=== PATIENT | male | born 1980 | race Native Hawaiian/Other Pacific Islander ===

== ENCOUNTER 2020-02-21 13:17 | Emergency (ER) | payer OTHER ==
--- NOTE | 2020-02-21 13:54 | ED Physician Documentation ---
History of Present Illness - Stated complaint Stated Complaint: SWELLING R FOOT - Chief complaint Chief Complaint: Ext Problem - Additonal information Additional information: 39-year-old male presents to the emergency department for evaluation of intermittent right foot pain for greater than 1 year. He reports that intermittently he will develop foot swelling. Sometimes it gets better on its own but sometimes it does not. He has been seen by [facility] recently and had negative x-rays. [facility] has not yet authorized him to be seen by a foot doctor. He feels that the pain is too severe and he cannot bear weight on the leg therefore he presents to the emergency department today. He denies fevers or dyspnea. No chest pain. No history of DVT or cancer. Does not take hormones. No recent travel or immobilization Review of Systems Constitutional: reports: Reviewed and negative Eyes: reports: Reviewed and negative Nose: reports: Reviewed and negative Throat: reports: Reviewed and negative Cardiac: reports: Reviewed and negative Respiratory: reports: Reviewed and negative GI: reports: Reviewed and negative : reports: Dysuria Skin: reports: Reviewed and negative Musculoskeletal: reports: Extremity pain (right foot) Neurologic: reports: Reviewed and negative Psychiatric: reports: Reviewed and negative PD PAST MEDICAL HISTORY - Past Medical History Past Medical History: No Cardiovascular: None Respiratory: None Neuro: None Endocrine/Autoimmune: None GI: None : None Psych: None Musculoskeletal: None Derm: None - Past Surgical History Past Surgical History: No - Allergies Allergies/Adverse Reactions: Allergies Allergy/AdvReac Type Severity Reaction Status Date / Time No Known Drug Allergies Allergy Verified 02/21/20 13:26 - Social History Does the pt smoke?: No Smoking Status: Never smoker Does the pt drink ETOH?: Yes Does the pt have substance abuse?: No - Immunizations Immunizations are current?: Yes - POLST Patient has POLST: No PD ED PE EXPANDED - General General: Alert, No acute distress, Well developed/nourished - Cardiac Cardiac: Regular Rate, Regular Rhythm, Radial strong equal, Pedal strong equal, Cap refill < 2 sec - Respiratory Respiratory: Clear to ausultation manas. No: Distress, Labored - Extremities Extremities: Pedal edema R (Generalized tenderness to the right foot with mild nonpitting edema to the ankle. No erythema. No deformity. Patient has significant difficulty bearing weight.) - Neuro Neuro: Alert and Oriented X 3, CNII-XII intact, CN deficit Results - Vitals Vitals: Vital Signs - 24 hr 02/21/20 13:21 Temperature 36.7 C Heart Rate 84 Respiratory 15 Rate Blood Pressure 143/90 H O2 Saturation 100 Oxygen O2 Source Room air - Labs Labs: Laboratory Tests 02/21/20 14:00 WBC 10.1 RBC 4.90 Hgb 14.9 Hct 44.6 MCV 91.0 MCH 30.4 MCHC 33.4 RDW 12.5 Plt Count 334 MPV 9.5 Neut # (Auto) 6.9 H Lymph # (Auto) 2.3 [place] # (Auto) 0.7 Eos # (Auto) 0.2 Baso # (Auto) 0.0 Absolute Nucleated RBC 0.00 Nucleated RBC % 0.0 PD MEDICAL DECISION MAKING - ED course Complexity details: reviewed results, re-evaluated patient, considered differential, d/w patient ED course: 39-year-old male presents the emergency department with worsening right foot pain limiting his ability to bear weight. This has been an intermittent problem for much of the last year. Patient reports to me that [facility] completed x- rays that were unrevealing. However our radiology department has concerned that he may have a sesamoid bone fracture. Given this possible new finding, he would benefit from referral at a director safety and/or an MRI of the foot. Patient was made nonweightbearing and giving a walking boot and crutches. He has an appointment with [facility] tomorrow and will continue follow-up there. Deferred ultrasound DVT of this right leg as this has been an intermittent problem for much of the last year and by Wells criteria the risk for DVT is low. Emergent return precautions discussed Departure - Departure Disposition: 01 Home, Self Care Clinical Impression: Right foot pain Condition: Stable Record reviewed to determine appropriate education?: Yes Comments: Eugene I hope that your foot is feeling better soon. The x-ray of your foot today suggest that you might have a sesamoid bone fracture. This is likely a chronic finding. However in the long-term evaluation with a director safety and/or an MRI of the foot may be necessary to help diagnose your pain. Please continue to wear the walking boot when out of bed and use crutches to help ambulate. Do not miss follow-up with [facility] tomorrow.
--- NOTE | 2020-02-21 14:12 | XRAY Report ---
PROCEDURE: Foot 3 View RT INDICATIONS: pain for > 1 year TECHNIQUE: 3 views of the foot were acquired. COMPARISON: Not available. FINDINGS: Bones: Bipartite lateral sesamoid which are displaced. No suspicious bony lesions. Soft tissues: No tibiotalar joint effusion. Achilles tendon appears normal. IMPRESSION: 1. Bipartite lateral sesamoid which are displaced. Cannot rule out sesamoid fracture. If there is foc al pain and tenderness, further evaluation with MRI is suggested. Reviewed by: Sydney Mcclure MD on 02/21/2020 2:11 PM PST Approved by: Sydney Mcclure MD on 02/21/2020 2:11 PM PST Station ID: [id number]
[2020-02-21 14:14] LABS: BASOPHILS % (AUTO) 0.4 %; EOSINOPHILS # (AUTO) 0.2 10^3/uL (0.0-0.7); EOSINOPHILS % (AUTO) 1.6 %; HGB - HEMOGLOBIN 14.9 g/dL (14.0-18.0); LYMPHOCYTES # (AUTO) 2.3 10^3/uL (1.5-3.5); LYMPHOCYTES % (AUTO) 22.3 %; MEAN CORPUSCULAR HEMOGLOBIN 30.4 pg (27.0-31.0); MEAN CORPUSCULAR HGB CONC 33.4 g/dL (32.0-36.0); MEAN PLATELET VOLUME 9.5 fL (7.4-11.4); MONOCYTES # (AUTO) 0.7 10^3/uL (0.0-1.0); MONOCYTES % (AUTO) 6.6 %; NEUTROPHILS # (AUTO) 6.9 10^3/uL (1.5-6.6); NEUTROPHILS % (AUTO) 68.6 %; PLT - PLATELET COUNT 334 10^3/uL (130-450); RED CELL DISTRIBUTION WIDTH 12.5 % (12.0-15.0); WHITE BLOOD COUNT 10.1 x10^3/uL (4.8-10.8)
[2020-02-21 14:20] LABS: ALBUMIN 4.2 g/dL (3.2-5.5); ALBUMIN/GLOBULIN RATIO 1.3 (1.0-2.2); BILIRUBIN,TOTAL 0.9 mg/dL (0.2-1.0); CALCIUM 9.4 mg/dL (8.5-10.3); TOTAL PROTEIN 7.4 g/dL (6.7-8.2)
[2020-02-21 14:39] VITALS: BP 148/96
== END 2020-02-21 14:45 | disposition home or self-care (01) ==
LOC: ED 13:17
DX: M79.671 Pain in right foot (principal)
CPT/HCPCS: 36415; 80053; 83690; 85025; 99284

== ENCOUNTER 2020-02-27 14:50 | Outpatient (CLI) | payer OTHER ==
--- NOTE | 2020-02-27 19:06 | MRI Report ---
PROCEDURE: Foot RT W/O INDICATIONS: PAIN IN RT FOOT TECHNIQUE: Noncontrast coronal and sagittal T1 spin echo and STIR; axial T1 spin echo and T2 fast spin echo with fat saturation through the right foot. COMPARISON: Right foot radiograph dated 02/21/2020. FINDINGS: Image quality: Excellent. Bones: Right foot alignment is anatomic. Recently joint osteoarthritic changes are seen with joint sp balaji narrowing or subchondral cyst formation. No marrow edema. No fracture or dislocation. No suspicio us intraosseous lesion. Soft tissues: There is dorsal midfoot and forefoot soft tissue swelling and edema particularly over lateral aspect. No discrete drainable fluid collection is seen. The scanned muscles demonstrate le l overall bulk and internal signal. Subcutaneous tissues appear normal as well. Lisfranc ligament an d joint is intact. IMPRESSION: 1. Dorsal right midfoot soft tissue swelling and edema. No or fluid collection. Tendinosis and ligame nts are intact. 2. No marrow edema. No fracture or dislocation. First MTP joint osteoarthritis. Reviewed by: Ferdinand Kwok MD on 02/27/2020 6:05 PM [facility] Approved by: Ferdinand Kwok MD on 02/27/2020 6:05 PM [facility] Station ID: [id number]
== END 2020-02-27 14:51 | disposition home or self-care (01) ==
LOC: DI 14:50
PROVIDERS: ATTEND Student in an Organized Health Care Education/Training Program
DX: M79.671 Pain in right foot (principal); R60.0 Localized edema

== ENCOUNTER 2020-03-18 08:45 | Outpatient (CLI) | payer OTHER ==
--- NOTE | 2020-03-18 09:43 | SLEEP CARE CONSULTATION ---
Information from patient questionnaire entered by Dedra Portillo. I have reviewed and concur with the information entered by Dedra Portillo. This document represents the service I personally performed and the decisions made by me, Anabell Barnes ARNP. History of Present Illness Service Date and Time: 03/18/2020 0845 Reason for Visit: New patient Chief Complaint: reports: Insomnia, Unrefreshed sleep, Snoring, Excessive daytime sleepiness, Observed pauses in breathing, Fatigue, Frequent awakenings at night Date of Onset: over 1 year Usual bedtime: 9:30 pm Time it takes to fall asleep: 1-2 hours Snores at night: Yes Observed to quit breathing while asleep: Yes Sleeps alone due to snoring: No Number of times waking at night: 3-4 Reasons for waking at night: reports: Choking, Snoring, Gasping for air, Pain, Bathroom Toss, Turn, or Twitch while sleeping: Yes Recalls having dreams: Yes (sometimes) Usually gets out of bed at: 5:30 am Feels refreshed in the morning: No Morning headache: Yes (most mornings for 1-2 hours w/out meds) Sleepy or fatigued during the day: Yes Ever fallen asleep while driving: No Takes day naps: Yes (seldomly, weekends if able for about 20-30 mins) Dreams during day naps: No Prior sleep studies: No Additional HPI information: I had the pleasure of seeing GEOVANY MARTIN today regarding the possibility of him having a sleep disorder. His current complaints are insomnia, snoring, observed pauses in breathing, frequent night awakenings, unrefreshed sleep, excessive daytime sleepiness and fatigue. 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 He has been told by his that he snores loudly, he does wake himself up snoring and with dry mouth. She has also noted that he has a pause in breathing. He has felt his heart rate increase and has to take a deep breath to relax. His father had bad snoring issues but not diagnosed with WILLA. - Parasomnia Symptoms Ever been unable to move upon waking from sleep: Yes Walks in sleep: No Talks in sleep: Yes Ever acted out dreams in sleep: Yes Ever felt weak in the knees when startled or emotional: No Bothered by creepy, crawly, restless sensations in legs: Yes (mostly at night) Problems with memory or concentration: Yes (both) Subjective Initial [place] Sleepiness Scale score: 4 (in 2019) Past Medical History Past Medical History: reports: Arthritis, Gout, Anxiety. denies: Hypertension (runs in family; not treated but has had some higher pressures), Diabetes, Arrythmia, Anemia, Impotence, Depression, Mood disorder, GERD Social History The patient's occupation is a Active . Patient is and lives in [place]. Have you smoked in the past 12 months: No Alcohol use: Yes Alcohol amount and frequency: 1-2 drinks a year Caffeine use: Yes Caffeine amount and frequency: 1 a month Family History Family history of sleep disordered breathing: Yes (father) Family Hx Sleep Apnea: Father: Snoring Allergies and Home Medications Drug allergies reviewed: Yes (NKDA) Home medication list reviewed: Yes Allergy and home medication list: Multivitamin Ibuprofen, prn Review of Systems Weight gain over past 5 years: 15-20 Weight loss over past 5 years: 15-20 Cardiovascular: reports: high blood pressure (occasional when sleeping), leg or foot swelling. denies: palpitations, irregular heart rate or pulse Respiratory: reports: wheeze Gastrointestinal: denies: heartburn Neurological: reports: headaches. denies: seizure, head trauma Psychiatric: reports: anxiety Ear/Nose/Throat: reports: nasal congestion, dry mouth/throat (usually in morning and when getting up during the night), wisdom teeth removed. denies: injury to nose, tonsillectomy Endocrine: reports: excessive thirst, increased appetite Musculoskeletal: reports: joint swelling, muscle pain or cramping, mobility problems Immunologic: reports: itching. denies: allergies to food or environment Physical Exam Blood Pressure: 128/92 Cuff size: long Heart Rate: 91 O2 Saturation: 97 Height: 5 ft 8 in Weight: 224 lb Body Mass Index: 34.0 BMI Classification: Obese Neck circumference: 15.5 (inches) Nostrils: patent to airflow Turbinates: swollen Septum: midline Mouth and throat: narrow oropharynx Soft palate: long Uvula visualization: 100% Mallampati Class I Tongue: enlarged in size with teeth bird on lateral edges Tonsils: 1+ Neck: normal w/o lymphadenopathy or thyromegaly Heart: irregular rhythm Lungs: clear bilaterally Impression and Plan 1. Suspected Obstructive Sleep Apnea-Hypopnea Syndrome, as suggested by a history of loud and irregular snoring, observed cessation of breath while asleep, gasping or choking in sleep, morning headache, frequent awakening during the night, unrefreshed sleep, cognitive impairment, and excessive daytime sleepiness. I reviewed with patient that a narrow oropharynx and obesity are common predisposing factors for obstructive sleep apnea-hypopnea syndrome. I recommend proceeding to polysomnography to confirm the diagnosis and to assess severity. If the patient has significant sleep disordered breathing, a manual CPAP titration study will also be performed to find the optimal treatment pressure. I informed the patient of what the sleep studies involve and after some discussion, obtained agreement to proceed. The pathophysiology of obstructive sleep apnea-hypopnea syndrome was discussed with the patient and [facility] risks of cardiovascular and cerebrovascular disease if not treated. [facility] brochure for obstructive sleep apnea-hypopnea syndrome given and reviewed. Risks of drowsy driving discussed in detail and patient advised to avoid long distance driving and to pull worker at the first sign of drowsiness. Patient agreed to plan. * Schedule polysomnography +- manual CPAP titration study and return in 1-2 we eks after the study to discuss result and initiate therapy. * Avoid long distance driving or driving when feeling sleepy. * Avoid alcohol, sedative and muscle relaxant around bedtime. * Attempt to lose weight. * Review instructions provided by trained office staff on how to prepare for the sleep study. * Return for follow-up after sleep study completed. Counseling Topics: Weight loss health impact Visit Type: In Office Time Spent with Patient (minutes): 30 Provider Statement: I spent 100% of the Face to Face Visit with the patient with greater than 50% spent counseling the patient and coordination of care.
[2020-03-18 09:44] VITALS: BP 128/92
== END 2020-03-18 08:46 | disposition home or self-care (01) ==
LOC: SC 08:45
PROVIDERS: ATTEND Nurse Practitioner Family
DX: R06.83 Snoring (principal); R06.81 Apnea, not elsewhere classified; R51.9 Headache, unspecified; G47.8 Other sleep disorders; R41.89 Other symptoms and signs involving cognitive functions and awareness; G47.10 Hypersomnia, unspecified; E66.9 Obesity, unspecified; Z68.34 Body mass index [BMI] 34.0-34.9, adult
CPT/HCPCS: 99203; 99212

== ENCOUNTER 2020-04-02 14:03 | Outpatient (CLI) | payer OTHER | END 2020-04-02 14:04 | disposition home or self-care (01) | LOC: SC 14:03 | PROVIDERS: ATTEND Nurse Practitioner Family | DX: G47.33 Obstructive sleep apnea (adult) (pediatric) (principal); E66.9 Obesity, unspecified; Z68.34 Body mass index [BMI] 34.0-34.9, adult | CPT/HCPCS: 95806 ==

== ENCOUNTER 2020-04-18 14:12 | Outpatient (CLI) | payer OTHER ==
--- NOTE | 2020-04-18 13:50 | SLEEP CARE CONSULTATION ---
Information from patient questionnaire entered by Haley Leigh. I have reviewed and concur with the information entered by Haley Leigh. This document represents the service I personally performed and the decisions made by me, Anabell Barnes ARNP. History of Present Illness Service Date and Time: 04/18/2020 1340 Initial [place] Sleepiness Scale score: 4 (in 2019) Additional HPI information: GEOVANY MARTIN returns via Telehealth visit for follow up and results of the recently performed home sleep study. I explained the pathophysiology behind obstructive sleep apnea. We then spent quite a bit of time discussing different treatment options. For mild obstr uctive sleep apnea, surgery and oral appliance are alternatives to nasal CPAP therapy but in moderate or severe cases, nasal CPAP is the most effective and reliable treatment. Because apnea is primarily in supine position, then positional management therapy could be effective. Methods discussed such as positioning with pillows, using a T-shirt with tennis balls in the back, and shown commercial products that have a pillow format on back to prevent supine sleep. I reviewed the impact of weight changes on sleep apnea and strongly recommended losing weight. After some discussion, the patient opted to go with the nasal CPAP therapy. Nasal autoCPAP set at 4-15 cmH20 will be ordered with rationale explained. A manual titration study will be ordered if unable to find optimal pressure with office adjustments. I explained how CPAP machine works and what to expect when using the machine. Using CPAP every night in order to get used to it was emphasized. Patient advised to put CPAP mask on before getting into bed so as not to fall asleep without CPAP. To assist acclimation to CPAP use, it could also be used for a short time during day while reading or watching TV. The patient was instructed to call the CPAP supplier to discuss any mechanical problem that may occur. If the mask given is uncomfortable or is difficult to keep on through the night even with adjustment, contact the CPAP supplier as many will replace with another mask style if notified before 30 days. If snoring or perceives is not getting enough air or too much air from the machine, notify this office. Patient was cautioned about risks of drowsy driving until sleepiness symptoms resolve. Sleep Study - Results Type of Sleep Study: Home sleep study Prior sleep studies: No Polysomnography/Home Sleep Study results: Physician Impression: The quality of the study is good. The length of the study is adequate (> 240 minutes). Please also see the tabulated and graphic data. 1. Obstructive Sleep Apnea-Hypopnea (ICD-10 G47.33), mild, with an AHI of 8.9/hr and angeli SaO2 of 82%. During the study, the patient had 17 apneas (17 obstructive, 0 central, 0 mixed) and 50 hypopneas. The longest episode lasted 57.0 seconds. The respiratory events occurred almost exclusively during supine sleep (supine AHI was 10.9 and non-supine, 0.66). 2. Hypoxemia (ICD-10 R09.02), mild, with the lowest oxygen saturation of 82 % and 1.4 minutes with SaO2 under 90%. Baseline oxygen saturation was normal (Average oxygen saturation was 95%). Allergies and Home Medications Drug allergies reviewed: Yes (NKDA) Home medication list reviewed: Yes (no changes) Review of Systems Review of systems same as previous: Yes (no changes) Physical Exam Vital signs obtained and entered by: Telehealth visit to reduce exposure during covid pandemic Height: 5 ft 8 in Impression and Plan 1. Obstructive Sleep Apnea-Hypopnea Syndrome, mild, with lowest oxygen saturation of 82%. Obviously this is the cause of the patients symptoms of unrefreshed sleep, and excessive daytime sleepiness. Positive pressure therapy could benefit anxiety. As mentioned above, the patient will be started on nasal autoCPAP therapy with pressure set at 4-15 cmH2O. A manual titration study will be completed if unable to find optimal treatment pressure with office adjustments. Compliance guidelines also reviewed. A copy of compliance guidelines will be given for reference at check out. Because the apnea is more severe supine, I instructed to avoid sleeping supine using pillow positioning until able to start CPAP use. * Nasal auto CPAP therapy, pressure at 4-15 cm H2O. * Attempt to lose weight. * Avoid alcohol consumption near bedtime. * Avoid supine sleep until using CPAP. * The patient is again cautioned about driving until sleepiness completely resolves. * Return one month after CPAP obtained. I will assess response to therapy and compliance at that time. Counseling Topics: Weight loss health impact Visit Type: Telehealth Video Video Type: VSee Patient Location: Home Location of Provider: Office Patient agrees and consents to this telehealth visit type: Yes Patient agrees to have their insurance billed: Yes Provider Statement: I spent 100% of the Telehealth Video Call with the patient with greater than 50% spent counseling the patient and coordination of care.
== END 2020-04-18 14:13 | disposition home or self-care (01) ==
LOC: SC 14:12
PROVIDERS: ATTEND Nurse Practitioner Family
DX: G47.33 Obstructive sleep apnea (adult) (pediatric) (principal)

== ENCOUNTER 2020-06-20 12:54 | Outpatient (CLI) | payer OTHER ==
--- NOTE | 2020-06-20 13:25 | SLEEP CARE CONSULTATION ---
Information from patient questionnaire entered by Dedra Portillo. I have reviewed and concur with the information entered by Dedra Portillo. This document represents the service I personally performed and the decisions made by , Anabell Barnes ARNP. History of Present Illness Service Date and Time: 06/20/2020 1254 Previous diagnosis: Mild, Obstructive Sleep Apnea-Hypopnea Syndrome AHI: 8.9 (in 2020) Reason for follow up: first compliance Equipment type: CPAP Equipment obtained from: [employer] (getting supplies as needed) Mask style: Full face Mask brand: Resmed (AirFit 20) Backup mask available: Yes (other mask) Last cushion change: 6 days ago Prior sleep studies: Yes Year and Where: 2020 - [facility] Type of Sleep Study: Home sleep study HPI additional information: GEOVANY MARTIN was diagnosed to have mild, AHI 8.9, obstructive sleep apnea- hypopnea syndrome and returned today for CPAP therapy first compliance follow- up. CPAP Compliance Data - Data Reviewed with Patient Average duration of nightly device use: 7 hr 42 min Compliance rate %: 90 Current pressure setting (cmH2O): 4-15 (median 5.7, avg 9.0, max 10.4) Humidity settin Average residual AHI: 1.6 Subjective Missed days of use due to: reports: other (work schedule) Patient concerns: reports: mask leak noise, condensation in mask/hose, other (movement). denies: aerophagia, mask discomfort, air blowing in eyes, nasal congestion, dry mouth, nose, throat, epistaxis Observed to snore while using device: No Current pressure setting perceived as: comfortable On therapy, patient: reports: sleeping better, awakening more refreshed, being more awake and alert during the day, more rested overall. denies: drowsiness while driving Initial [place] Sleepiness Scale score: 4 (in 2019) Current [place] Sleepiness Scale score: 8 (on nights; shift work) Allergies and Home Medications Home medication list reviewed: Yes (no changes) Review of Systems Review of systems same as previous: Yes (no changes) Physical Exam Heart Rate: 95 O2 Saturation: 97 Height: 5 ft 8 in Weight: 219 lb Body Mass Index: 33.3 BMI Classification: Obese Impression and Plan 1. Obstructive Sleep Apnea-Hypopnea Syndrome, mild, with good treatment compliance and good apnea control. On CPAP therapy, the patient has better sleep quality and is more rested overall. He has had some mask movement and air leaking when laying on his side. He feels the medium full face mask fits him best. Mask leaks can be reduced by washing mask daily and changing mask cushions more frequently to improve mask seal and comfort. Additionally, mask leaks predominately from when patient sleeps on their side can be reduced by using a CPAP pillow. A CPAP pillow sample was shown. This and other styes can be purchased online. I will adjust his APAP pressure to reflect pressures he is using to 6-10 cmH2O and follow up in 1-2 months. Patient's apnea severity and rationale for treatment to reduce apnea, improve sleep quality and reduce cardiovascular and cerebrovascular events was reviewed. I also reviewed the benefit of consistent device use of CPAP for anxiety. * Change auto CPAP pressure to 6-10 cmH2O * Notify me if snoring with mask or feeling that the pressure is too much or too little * Attempt to lose weight * Call this office if any problems using CPAP * Return for follow up in 1-2 months , or sooner if concerns arise Counseling Topics: Spare mask, Weight loss health impact, Activity level Visit Type: In Office Time Spent with Patient (minutes): 22 Provider Statement: I spent 100% of the Face to Face Visit with the patient with greater than 50% spent counseling the patient and coordination of care.
--- OUTSIDE RECORDS SUMMARY | 2020-06-25 01:58 | EXTERNAL MEDICAL SUMMARY RPT | Continuity of Care Document ---
:1980 Demographics Phone Unavailable Preferred Language Polish Marital Status Unknown Christianity Affiliation Unknown Race Unknown Ethnic Group Unknown Author Organization [place] Address [address] [place] [address] Phone Social History date description facility [phone]
== END 2020-06-20 12:55 | disposition home or self-care (01) ==
LOC: SC 12:54
PROVIDERS: ATTEND Nurse Practitioner Family
DX: G47.33 Obstructive sleep apnea (adult) (pediatric) (principal); E66.9 Obesity, unspecified; Z68.33 Body mass index [BMI] 33.0-33.9, adult
CPT/HCPCS: 99212; 99213

== ENCOUNTER 2020-08-08 14:43 | Outpatient (CLI) | payer OTHER ==
--- NOTE | 2020-08-08 15:01 | SLEEP CARE CONSULTATION ---
Information from patient questionnaire entered by Dedra Portillo. I have reviewed and concur with the information entered by Dedra Portillo. This document represents the service I personally performed and the decisions made by , Anabell Barnes ARNP. History of Present Illness Service Date and Time: 08/08/2020 1443 Previous diagnosis: Mild, Obstructive Sleep Apnea-Hypopnea Syndrome AHI: 8.9 (in 2020) Reason for follow up: other (6 week with pressure change) Equipment type: CPAP Equipment obtained from: [employer] (getting supplies as needed) Mask style: Full face Backup mask available: Yes (other mask) Last cushion change: 1 month Prior sleep studies: Yes Year and Where: 2020 - [facility] Type of Sleep Study: Home sleep study HPI additional information: GEOVANY MARTIN was diagnosed to have mild, AHI 8.9, obstructive sleep apnea- hypopnea syndrome and returned today for CPAP therapy 6 week pressure change follow-up. CPAP Compliance Data - Data Reviewed with Patient Average duration of nightly device use: 8 hr 11 min Compliance rate %: 93 Current pressure setting (cmH2O): 6-10 Humidity settin Average residual AHI: 1.3 Subjective Missed days of use due to: reports: other (schedule) Patient concerns: reports: air blowing in eyes, mask leak noise (just a little bit), other (some skin irritation that cleared up with a mask liner). denies: aerophagia, mask discomfort, condensation in mask/hose, nasal congestion, dry mouth, nose, throat, epistaxis Observed to snore while using device: No Current pressure setting perceived as: comfortable On therapy, patient: reports: sleeping better, awakening more refreshed, being more awake and alert during the day, more rested overall. denies: drowsiness while driving Initial [place] Sleepiness Scale score: 4 (in 2019) Current [place] Sleepiness Scale score: 3 Allergies and Home Medications Home medication list reviewed: Yes (no changes) Review of Systems Review of systems same as previous: Yes (no changes) Physical Exam Heart Rate: 64 O2 Saturation: 98 Height: 5 ft 8 in Weight: 222 lb Body Mass Index: 33.7 BMI Classification: Obese Impression and Plan 1. Obstructive Sleep Apnea-Hypopnea Syndrome, mild, with good treatment compliance and good apnea control. On CPAP therapy, the patient has better sleep quality and is more rested overall. He was getting a rash from the foam on the full face mask. He got a mask liner to cover the foam and this has resolved. He gets a little air leaking in his eyes at the corners since using the liners but states he has not experience any dry eyes and it is not very much air. He has significant improvement of his apneas and is happy with his treatment so far. He intends to use the CPAP residential. Patient's apnea severity and rationale for treatment to reduce apnea, improve sleep quality and reduce cardiovascular and cerebrovascular events was reviewed. I also reviewed the benefit of consistent device use of CPAP for anxiety. * Continue autoCPAP pressure at 6-10 cmH2O * Notify me if snoring with mask or feeling that the pressure is too much or too little * Attempt to lose weight * Call this office if any problems using CPAP * Return for follow up in 3 months, or sooner if concerns arise Counseling Topics: Spare mask, Weight loss health impact Visit Type: In Office Time Spent with Patient (minutes): 12 Provider Statement: I spent 100% of the Face to Face Visit with the patient with greater than 50% spent counseling the patient and coordination of care.
== END 2020-08-08 14:44 | disposition home or self-care (01) ==
LOC: SC 14:43
PROVIDERS: ATTEND Nurse Practitioner Family
DX: G47.33 Obstructive sleep apnea (adult) (pediatric) (principal); E66.9 Obesity, unspecified; Z68.33 Body mass index [BMI] 33.0-33.9, adult
CPT/HCPCS: 99212

== ENCOUNTER 2020-11-14 12:46 | Outpatient (CLI) | payer OTHER ==
--- NOTE | 2020-11-14 13:19 | SLEEP CARE CONSULTATION ---
Information from patient questionnaire entered by Dedra Portillo. I have reviewed and concur with the information entered by Dedra Portillo. This document represents the service I personally performed and the decisions made by , Anabell Barnes ARNP. History of Present Illness Service Date and Time: 11/14/2020 1246 Previous diagnosis: Mild, Obstructive Sleep Apnea-Hypopnea Syndrome AHI: 8.9 (in 2020) Reason for follow up: three month Equipment type: CPAP Equipment obtained from: [employer] (getting supplies as needed) Mask style: Full face Mask brand: Resmed (AirFit 20) Backup mask available: Yes (other mask) Last cushion change: 2 weeks Prior sleep studies: Yes Year and Where: 2020 - [facility] Type of Sleep Study: Home sleep study HPI additional information: GEOVANY MARTIN was diagnosed to have mild, AHI 8.9, obstructive sleep apnea- hypopnea syndrome and returned today for CPAP therapy three month follow-up. CPAP Compliance Data - Data Reviewed with Patient Average duration of nightly device use: 8 hr 57 min Compliance rate %: 93 (90 days) Current pressure setting (cmH2O): 6-10 Humidity settin Average residual AHI: 1.2 Subjective Missed days of use due to: reports: travel Patient concerns: reports: mask leak noise, other (nose cold, itching). denies: aerophagia, mask discomfort, air blowing in eyes, condensation in mask/hose, nasal congestion, dry mouth, nose, throat, epistaxis Observed to snore while using device: No Current pressure setting perceived as: comfortable On therapy, patient: reports: sleeping better, awakening more refreshed, being more awake and alert during the day, more rested overall. denies: drowsiness while driving Initial [place] Sleepiness Scale score: 4 (in 2019) Current [place] Sleepiness Scale score: 2 Allergies and Home Medications Home medication list reviewed: Yes (no changes) Review of Systems Review of systems same as previous: Yes (no changes) Physical Exam Heart Rate: 81 O2 Saturation: 97 Height: 5 ft 8 in Weight: 224 lb Body Mass Index: 34.0 BMI Classification: Obese Impression and Plan 1. Obstructive Sleep Apnea-Hypopnea Syndrome, mild, with good treatment compliance and good apnea control. On CPAP therapy, the patient has better sleep quality and is more rested overall. He states his nose occasionally feels a little cold and makes him want to itch at it from adjusting his humidity. He is still working on getting it right. Using a barrier with his mask has reduce some skin irritation he was getting. He states that while he is definitely getting better sleep, feeling more rested and having more energy, he is not sure if he is getting to the deeper levels of sleep. He cannot really explain why he feels this way. He is averaging almost 9 hours of sleep on device, including occasional naps. I advised him to try to not to go over the 7-9 hours that is recommended for adequate amount of sleep. Otherwise, he is doing fine. Patient's apnea severity and rationale for treatment to reduce apnea, improve sleep quality and reduce cardiovascular and cerebrovascular events was reviewed. I also reviewed the benefit of consistent device use of CPAP for anxiety. Patient is working out at the gym regularly and watching his weight gain. * Continue auto CPAP pressure at 6-10 cmH2O * Notify me if snoring with mask or feeling that the pressure is too much or too little * Maintain a healthy weight * Call this office if any problems using CPAP * Return for follow up in 6 months, or sooner if concerns arise Counseling Topics: Spare mask, Weight loss health impact Follow up with Sleep Care in: 6 months Visit Type: In Office Time Spent with Patient (minutes): 19 Provider Statement: I spent 100% of the Face to Face Visit with the patient with greater than 50% spent counseling the patient and coordination of care.
== END 2020-11-14 12:47 | disposition home or self-care (01) ==
LOC: SC 12:46
PROVIDERS: ATTEND Nurse Practitioner Family
DX: G47.33 Obstructive sleep apnea (adult) (pediatric) (principal); E66.9 Obesity, unspecified; Z68.34 Body mass index [BMI] 34.0-34.9, adult
CPT/HCPCS: 99212

== ENCOUNTER 2021-09-16 13:38 | Outpatient (CLI) | payer OTHER ==
[2021-09-16 14:25] VITALS: BP 124/81
--- NOTE | 2021-09-16 14:25 | SLEEP CARE CONSULTATION ---
Information from patient questionnaire entered by Tami Brooks MA. I have reviewed and concur with the information entered by Tami Brooks MA. This document represents the service I personally performed and the decisions made by , Anabell Barnes ARNP. History of Present Illness Service Date and Time: 09/16/2021 1338 Previous diagnosis: Mild, Obstructive Sleep Apnea-Hypopnea Syndrome AHI: 8.9 (in 2020) Reason for follow up: other (10 MONTH F/U, LAST SEEN 10/2020, JUNITO MEZA 05/02/20, ) Equipment type: CPAP Equipment obtained from: [employer] (getting supplies as needed) Mask style: Full face Mask brand: Resmed (F20) Backup mask available: Yes (old mask) Last cushion change: 3.5 weeks Prior sleep studies: Yes Year and Where: 2020 - [facility] Type of Sleep Study: Home sleep study HPI additional information: GEOVANY MARTIN was diagnosed to have mild, AHI 8.9, obstructive sleep apnea- hypopnea syndrome and returned today for CPAP therapy 10 month follow-up. Sleep Study - Results Type of Sleep Study: Home sleep study Prior [facility]: Yes [facility] CP[facility] Compliance Data - Data Reviewed with Patient Average duration of nightly device use: 8 HOURS 37 MINUTES Compliance rate %: 99 (03/19/2022-09/14/2021; 180 days; 180/180 day usage) Current pressure setting (cmH2O): 8-10 Average residual AHI: 1.1 Central apnea: .6 Obstructive apnea: .1 Hypopnea: .2 Average large leak: 16.6 Subjective Patient concerns: denies: aerophagia, mask discomfort, air blowing in eyes, mask leak noise, condensation in mask/hose, nasal congestion, dry mouth, nose, throat, epistaxis, other Observed to snore while using device: No Current pressure setting perceived as: comfortable On therapy, patient: reports: sleeping better, awakening more refreshed, being more awake and alert during the day, more rested overall. denies: drowsiness while driving Initial [place] Sleepiness Scale score: 4 (in 2019) Current [place] Sleepiness Scale score: 1 (09/16/21) Allergies and Home Medications Known drug allergies: Yes Drug allergies reviewed: Yes Home medication list reviewed: Yes (Lisinopril 20 mg daily) Allergy and home medication list: Allergies No Known Drug Allergies Allergy (Verified 02/21/20 13:26) Review of Systems Review of systems same as previous: No (hypertension) Physical Exam Vital signs obtained and entered by: MERI GARCIA Blood Pressure: 124/81 (RESP 18, PULSE 74, RIGHT) Heart Rate: 72 O2 Saturation: 98 Height: 5 ft 8 in Weight: 226 lb 8 oz (UNIFORM AND BOOTS) Body Mass Index: 34.4 BMI Classification: Obese Impression and Plan 1. Obstructive Sleep Apnea-Hypopnea Syndrome, mild, with excellent treatment compliance and good apnea control. On CPAP therapy, the patient has better sleep quality and is more rested overall. Patient denies problems with oral dryness, nasal congestion, epistaxis, skin irritation or aerophagia. Patient's apnea severity and rationale for treatment to reduce apnea, improve sleep quality and reduce cardiovascular and cerebrovascular events was reviewed. I also reviewed the benefit of consistent device use of CPAP for anxiety. 2. Obesity, unspecified. Patient is trying to lose weight. He works out regularly and tries to eat a healthy diet. He rarely eats out. Currently patients BMI is 34.4. Obesity increases the risk of apnea, CPAP pressure requirements and overall health risks especially cardiovascular and diabetes. Thus patient is advised to continue to try to lose weight. Weight loss can be done with reducing portion size, reducing refined foods and balancing content with vegetables, fruit and whole grain foods. * Continue auto CPAP pressure at 8-10 cmH2O * Notify me if snoring with mask or feeling that the pressure is too much or too little * Attempt to lose weight * Call this office if any problems using CPAP * Return for follow up in 1 year, or sooner if concerns arise Counseling Topics: Spare mask, Weight loss health impact Visit Type: In Office Time Spent with Patient (minutes): 12 Provider Statement: I spent 100% of the Face to Face Visit with the patient with greater than 50% spent counseling the patient and coordination of care.
== END 2021-09-16 13:39 | disposition home or self-care (01) ==
LOC: SC 13:38
PROVIDERS: ATTEND Nurse Practitioner Family
DX: G47.33 Obstructive sleep apnea (adult) (pediatric) (principal); E66.9 Obesity, unspecified; Z68.34 Body mass index [BMI] 34.0-34.9, adult
CPT/HCPCS: 99212

== ENCOUNTER 2022-09-17 11:25 | Outpatient (CLI) | payer OTHER ==
--- NOTE | 2022-09-17 12:08 | SLEEP CARE CONSULTATION ---
Information from patient questionnaire entered by Brain Olivia. I have reviewed and concur with the information entered by Brain Olivia. This document represents the service I personally performed and the decisions made by me, Anabell Barnes ARNP. History of Present Illness Service Date and Time: 09/17/2022 1125 Previous diagnosis: Mild, Obstructive Sleep Apnea-Hypopnea Syndrome AHI: 8.9 (in 2020) Reason for follow up: annual (LAST SEEN 08/2021) Equipment type: CPAP (Resmed 10, 04/2020) Equipment obtained from: [employer] (getting supplies as needed) Mask style: Full face Mask brand: Resmed (AirFit F20) Backup mask available: Yes (old mask) Last cushion change: 1 month Prior sleep [facility]: Yes [facility] Type of Sleep Study: Home sleep study HPI additional information: GEOVANY MARTIN was diagnosed to have mild, AHI 8.9, obstructive sleep apnea- hypopnea syndrome and returned today for CPAP therapy annual follow-up. Sleep Study - Results Type of Sleep Study: Home sleep study Prior sleep studies: Yes Year and Where: 2020 - [facility] CPAP Compliance Data - Data Reviewed with Patient Average duration of nightly device use: 7 HRS 49 MIN Compliance rate %: 99 (03/20/22-09/15/22; 180/180 days used) Current pressure setting (cmH2O): 8-10 Average residual AHI: 1.1 Central apnea: 0.8 Obstructive apnea: 0.1 Hypopnea: 0.2 Average large leak: 6 L/min Subjective Patient concerns: reports: aerophagia (occasional), condensation in mask/hose (sometimes), dry mouth, nose, throat (one night, was oral venting). denies: mask discomfort, air blowing in eyes, mask leak noise, nasal congestion, epistaxis Observed to snore while using device: Yes (sometimes) Current pressure setting perceived as: comfortable On therapy, patient: reports: sleeping better, awakening more refreshed, being more awake and alert during the day, more rested overall. denies: drowsiness while driving Initial [place] Sleepiness Scale score: 4 (in 2019) Current [place] Sleepiness Scale score: 2 (09/17/22) Allergies and Home Medications Known drug allergies: No Drug allergies reviewed: Yes Home medication list reviewed: Yes (no changes) Allergy and home medication list: Allergies No Known Drug Allergies Allergy (Verified 09/16/22 14:23) Review of Systems Review of systems same as previous: Yes (no changes) Physical Exam Vital signs obtained and entered by: BRAIN Bermudez MA Blood Pressure: 134/90 (LEFT ARM) Cuff size: regular Heart Rate: 80 O2 Saturation: 98 Height: 5 ft 8 in Weight: 236 lb Body Mass Index: 35.9 BMI Classification: Obese Impression and Plan 1. Obstructive Sleep Apnea-Hypopnea Syndrome, mild, with good treatment compliance and good apnea control. On CPAP therapy, the patient has better sleep quality and is more rested overall. He has been getting occasional bloating in the mornings. To reduce symptoms of aerophagia, the CPAP pressure will be reduced to 8-9 cmH2O. Patient advised to contact me if this does not reduce symptoms or if pressure change uncomfortable. Patient's apnea severity and rationale for treatment to reduce apnea, improve sleep quality and reduce cardiovascular and cerebrovascular events was reviewed. I also reviewed the benefit of consistent device use of CPAP for anxiety. 2. Obesity, unspecified. Currently patients BMI is 35.9. Obesity increases the risk of apnea, CPAP pressure requirements and overall health risks especially cardiovascular and diabetes. Thus patient is advised to lose weight. Change auto CPAP pressure to 8-9 cmH2O Update supplies Notify me if snoring with mask or feeling that the pressure is too much or too little Attempt to lose weight Call this office if any problems using CPAP Return for follow up in 1 year, or sooner if concerns arise Counseling Topics: Spare mask, Weight loss health impact Prescriptions: Device supplies Visit Type: In Office Time Spent with Patient (minutes): 20 Provider Statement: I spent 100% of the Face to Face Visit with the patient with greater than 50% spent counseling the patient and coordination of care.
[2022-09-17 12:13] VITALS: BP 134/90
== END 2022-09-17 11:26 | disposition home or self-care (01) ==
LOC: SC 11:25
PROVIDERS: ATTEND Nurse Practitioner Family
DX: G47.33 Obstructive sleep apnea (adult) (pediatric) (principal); E66.9 Obesity, unspecified; Z68.35 Body mass index [BMI] 35.0-35.9, adult
CPT/HCPCS: 99212; 99213

== ENCOUNTER 2023-06-27 10:58 | Outpatient (CLI) | payer OTHER ==
--- NOTE | 2023-06-27 13:33 | Ultrasound Report ---
PROCEDURE: Abdomen Limited INDICATIONS: UMBILICAL HERNIA TECHNIQUE: Real-time focused scanning was performed of the area of palpable lump COMPARISONS: None. FINDINGS: Periumbilical region: Imaged with 5 MHz linear transducer with and without Valsalva. There is a periu mbilical hernia with an abdominal wall defect measuring 5.6 mm with at least partially reducible fat. IMPRESSION: Small periumbilical hernia containing at least partially reducible fat. Reviewed by: Robert Otero MD on 06/27/2023 1:32 PM PDT Approved by: Robert Otero MD on 06/27/2023 1:32 PM PDT Station ID: [id number]
== END 2023-06-27 10:59 | disposition home or self-care (01) ==
LOC: DI 10:58
PROVIDERS: ATTEND Nurse Practitioner Family
DX: K42.9 Umbilical hernia without obstruction or gangrene (principal)

== ENCOUNTER 2023-09-15 15:34 | Outpatient (CLI) | payer OTHER ==
--- NOTE | 2023-09-15 15:57 | Sleep Patient Instructions ---
Sleep Center Visit Summary - Patient Visit Information Reason for Visit: Annual follow-up - Patient Instructions Additional Instructions: You will continue with CPAP therapy with pressure set at 8.6-9.2 cmH2O. A supply prescription will be updated with your DME. We encourage you to continue to try to lose weight. Please follow up with the sleep care office in 1 year. - Clinic Information Contact: [facility] [address] [place] [address] [email or web address] T: [phone]
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
[2023-09-15 16:04] VITALS: BP 148/84; O2SAT 98
== END 2023-09-15 15:35 | disposition home or self-care (01) ==
LOC: SC 15:34
PROVIDERS: ATTEND Nurse Practitioner Family
DX: G47.33 Obstructive sleep apnea (adult) (pediatric) (principal); E66.9 Obesity, unspecified; Z68.36 Body mass index [BMI] 36.0-36.9, adult
CPT/HCPCS: 99212; 99213